=== PATIENT | male | born 1985 | race African-American/Black ===

== ENCOUNTER 2021-01-14 08:52 | Emergency (ER) | payer MEDICAID ==
[~2021-01-14] VITALS: Ht 172.7 cm; Wt 55.0 kg
[2021-01-14] MEDS ORDERED: KETOROLAC 30MG/ML VIAL IM ONE (09:30)
[2021-01-14] MEDS ORDERED: IBUPROFEN 600MG TABLET PO ONE (10:00)
[2021-01-14 11:19] VITALS: BP 123/68
== END 2021-01-14 11:21 | disposition home or self-care (01) ==
LOC: EDBD 08:52 → ER 08:52
DX: S29.012A Strain of muscle and tendon of back wall of thorax, initial encounter (principal); W01.0XXA Fall on same level from slipping, tripping and stumbling without subsequent striking against object, initial encounter; Y93.89 Activity, other specified; Y92.488 Other paved roadways as the place of occurrence of the external cause
CPT/HCPCS: 99282